=== PATIENT | female | born 1935 | race Caucasian/White ===

== ENCOUNTER 2019-10-04 09:42 | Outpatient (CLI) | payer MEDICARE, MEDICAID, SELFPAY | END 2019-10-04 09:43 | disposition home or self-care (01) | PROVIDERS: PCP Family Medicine; Visit Provider Specialist | DX: I34.0 Nonrheumatic mitral (valve) insufficiency (principal); I36.1 Nonrheumatic tricuspid (valve) insufficiency | CPT/HCPCS: 93306 ==

== ENCOUNTER 2021-08-07 10:59 | Outpatient (CLI) | payer OTHER, SELFPAY ==
--- NOTE | 2021-08-07 11:30 | ECG_ITS ---
Measurements Intervals [place] Rate: 69 P: ID: 0 QRS: 92 QRSD: 103 T: 80 QT: 425 QTc: 458 Interpretive Statements ATRIAL FIBRILLATION BORDERLINE RIGHT AXIS DEVIATION [QRS AXIS > 90] CONSIDER PREVIOUS ANTEROSEPTAL INFARCTION MODERATE ST DEPRESSION [0.05+ mV ST DEPRESSION] NO PREVIOUS ECG AVAILABLE FOR COMPARISON Electronically Signed On 08-07-2021 14:41:10 CDT by Latrell Kline M.D.
== END 2021-08-07 11:00 | disposition home or self-care (01) ==
LOC: CHSCARD 11:10
PROVIDERS: PCP Physician Assistant; Visit Provider Physician Assistant
DX: I48.91 Unspecified atrial fibrillation (principal)
CPT/HCPCS: 93005

== ENCOUNTER 2021-08-27 11:20 | Outpatient (CLI) | payer OTHER, SELFPAY ==
--- NOTE | ~2021-08-27 | XR_ITS ---
XR wrist RT min 3V DATE: 08/27/2021 11:46 INDICATION: Fall. Right wrist pain. TECHNIQUE: 4 views COMPARISON: None FINDINGS: There is a transverse band of sclerosis across the distal radius near the fused growth plat e, suggesting subacute healing virtually nondisplaced distal radial fracture. There is a linear fracture with minimal displacement at the ulnar styloid process. There is increased joint space between the navicular and lunate bones. There is sclerosis of the prox imal half of the navicular bone suggesting avascular necrosis. No other fracture or dislocation is detected. Prominent osteoarthritic change at the first carpometacarpal joint. Osteopenia. 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 IMPRESSION: Subacute healing transverse nondisplaced distal radial fracture Fracture of ulnar styloid process Increased density of proximal half of the navicular bone suggesting avascular n ecrosis Scapholunate dissociation First carpometacarpal osteoarthritis Osteopenia
== END 2021-08-27 11:21 | disposition home or self-care (01) ==
PROVIDERS: PCP Family Medicine; Visit Provider Physician Assistant
DX: S62.101A Fracture of unspecified carpal bone, right wrist, initial encounter for closed fracture (principal)
CPT/HCPCS: 73110

== ENCOUNTER 2023-02-14 09:39 | Outpatient (CLI) | payer OTHER, SELFPAY ==
--- NOTE | 2023-02-14 10:02 | ECG_ITS ---
Measurements Intervals [place] Rate: 62 P: PA: 0 QRS: 93 QRSD: 103 T: 79 QT: 437 QTc: 447 Interpretive Statements ATRIAL FIBRILLATION CANNOT RULE OUT ANTEROSEPTAL mYOCARDIAL INFARCTION , OF INDETERMINATE AGE [40+ ms Q WAVE AND/OR ST/T ABNORMALITY IN V3/V4] ABNORMAL ECG COMPARED TO ECG 08/07/2021 11:34:24 NO SIGNIFICANT CHANGES Electronically Signed On 02-14-2023 16:37:02 CDT by Raymundo Sexton M.D.
[2023-02-14 10:04] LABS: Basophils Absolute Auto 0.04 K/mm3 (0.00-0.10); Basophils Percent Auto 0.8 % (0.0-1.0); Eosinophils Absolute Auto 0.22 K/mm3 (0.02-0.50); Eosinophils Percent Auto 4.4 % (1.0-6.0); Hematocrit 38.7 % (35.0-42.0); Hemoglobin 12.5 g/dL (11.7-13.8); Immature Granulocyte Absolute 0.02 K/mm3 (0.00-0.00); Immature Granulocyte Percent A 0.4 % (0.0-0.0); Lymphocytes Absolute Auto 1.05 K/mm3 (1.10-4.50); Lymphocytes Percent Auto 21.1 % (18.0-42.0); Mean Corpuscular HGB Conc 32.3 g/dL (32.0-36.0); Mean Corpuscular Hemoglobin 30.4 pg (27.0-31.0); Mean Corpuscular Volume 94.2 fL (78.0-102.0); Mean Platelet Volume 9.3 fl (9.2-11.8); Monocytes Absolute Auto 0.36 K/mm3 (0.10-0.90); Monocytes Percent Auto 7.2 % (2.0-11.0); Neutrophils Absolute Auto 3.3 K/mm3 (1.7-7.2); Neutrophils Percent Auto 66.1 % (50.0-70.0); Platelet Count Result 170 K/mm3 (150-420); Red Blood Count 4.11 M/mm3 (4.20-5.40); Red Cell Distribution Width 13.9 % (11.6-14.4)
== END 2023-02-14 09:40 | disposition home or self-care (01) ==
PROVIDERS: PCP Family Medicine; Visit Provider Physician Assistant
DX: Z01.818 Encounter for other preprocedural examination (principal); I48.91 Unspecified atrial fibrillation; R94.31 Abnormal electrocardiogram [ECG] [EKG]
CPT/HCPCS: 36415; 85025; 93005